=== PATIENT | male | born 1945 | race Caucasian/White ===

== ENCOUNTER → 2018-06-09 10:14 | Outpatient (CLI) | payer MEDICARE, BC, SELFPAY ==
[2018-06-09 10:33] LABS: Absolute Lymphocyte Count 1.28 X10^3/ul (0.83-4.51); Absolute Neutrophil Count 3.4 X10^3/uL (2.0-7.7); Basophil# 0.05 X10^3/uL; Eosinophils% 1.9 % (0-5); Hematocrit 44.4 % (40-54); Hemoglobin 14.8 g/dl (13.0-16.5); Lymphocyte # 1.28 X10^3/ul (4.0); Lymphocyte % 24.5 % (19-41); Mean Corp Hgb Conc 33.3 g/gl (32-36); Mean Corpuscular Hgb 33.5 pg (27.0-32.0); Mean Corpuscular Volume 100.5 fL (80-94); Mean Platelet Vol. 10.3 fl (6.2-12.0); Monocyte# 0.38 X10^3/uL; Monocyte% 7.3 % (0-10); Neutrophil % 64.9 % (47-70); Platelet Count 201 K/mm3 (150-450); RBC Distribution Width CV 13.3 % (11.6-14.6); RBC Distribution Width SD 48.5 fl (35.1-43.9); Red Blood Count 4.42 M/mm3 (4.6-6.2); White Blood Count 5.2 K/mm3 (4.4-11.0)
[2018-06-09 10:36] LABS: POSITIVE COUNT NO; POSITIVE DIFFERENTIAL NO; POSITIVE MORPHOLOGY NO
== END ==
PROVIDERS: Visit Provider Internal Medicine Hematology & Oncology
DX: C64.2 Malignant neoplasm of left kidney, except renal pelvis (principal)
CPT/HCPCS: 85025

== ENCOUNTER 2019-06-09 14:47 | Emergency (ER) | payer MEDICARE, BC, SELFPAY ==
[2019-06-09] VITALS (8 sets, daily range): BP systolic 180–209; BP diastolic 89–113; PULSE 66–78; RESP 14–18; TEMP 36.9; O2SAT 93–98; BMI 26.0
--- NOTE | 2019-06-09 14:55 | CT_ITS ---
STUDY: CT BRAIN WITHOUT CONTRAST REASON FOR EXAM: Male, 73 years old. Possible stroke. Patient has a history of prior brain tumor. RADIATION DOSAGE (If Supplied By Facility): CTDIvol = ( 44.99 ) mGy, DLP = ( 863.60 ) mGycm TECHNIQUE: Transaxial CT imaging of the brain was performed without administration of intravenous contrast material. Individualized dose optimization techniques were used for this CT. COMPARISON: No relevant priors. FINDINGS: Normal soft tissue structures. Once again, the patient is status post craniotomy involving the posterior vertex of the calvarium of the left parietal bone. Titanium mesh is seen. There is mild cerebral atrophy with widening of the extra-axial spaces and ventricular dilatation. Normal white matter tracts of the cerebral hemispheres. Normal basal ganglia and thalami. Normal brainstem. Normal cerebellum. There is no intracranial hemorrhage. There are no findings of an acute ischemic infarction. Atherosclerotic calcification of the cavernous portions of the internal carotid arteries. Partial opacification of the maxillary sinuses and ethmoid sinuses. CT/Brain/Head without Contrast IMPRESSION: Chronic involutional changes of the brain. Stable examination. No acute abnormality is seen. N.B. : The above information has been verbally conveyed by Wes Hammonds to Kulwinder Randall on 06/09/2019 15:15:58 (ET). Electronically Signed: Wes Hammonds, at 15:18 EST , Service support ,
--- NOTE | 2019-06-09 14:55 | EKG12_ITS ---
Test Reason : NEURO Blood Pressure : / mmHG Vent. Rate : 063 BPM Atrial Rate : 063 BPM P-R Int : 176 ms QRS Dur : 082 ms QT Int : 394 ms P-R-T Axes : 029 -05 011 degrees QTc Int : 403 ms Normal sinus rhythm Normal ECG Confirmed by ROYAL CHAVARRIA, OLLIE ([id number]), multimedia editor CARL DELEON ([id number]) on 06/11/2019 12:33:58 PM Referred By: JESUS Confirmed By:CHRIS PAIGE MD
--- NOTE | 2019-06-09 14:55 | RAD_ITS ---
STUDY: X-RAY CHEST REASON FOR EXAM: Male, 73 years old. Weakness. TECHNIQUE: Single AP portable view of the chest. COMPARISON: Comparison is made with prior study dated January 09, 2017. FINDINGS: EKG electrodes are seen. Stable minimally increased linear markings in the left midlung suggestive of linear scarring. There is no demonstrated pleural abnormality. Normal size heart. Normal mediastinum and david. Normal visualized pulmonary arteries. There is atherosclerotic calcification of the aortic arch with tortuosity. Normal visualized thoracic spine. Normal visualized ribs, clavicles, and shoulders. There is no demonstrated abnormality of the visualized soft tissue structures of the upper abdomen. RAD/Chest 1 View IMPRESSION: Stable mild increased linear markings at the left lung base suggestive of linear scarring. Electronically Signed: Wes Hammonds, at 15:35 EST , Service support ,
--- NOTE | 2019-06-09 14:58 | ED.VISSUMM ---
- ER Visit Summary Date of Service: 06/09/19 Chief Complaint: Onset left facial numbness, facial droop, left hand numbness and weakness and left leg weakness and numbness History of Present Illness: The patient is a 73 M very complex past medical history. The patient is a history of renal cancer with metastases. 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 Patient saw his oncologist today Dr. Bright Dsouza. He was doing well and as he was leaving the office he started having strokelike symptoms. He developed some difficulty with his speech, left facial droop and numbness, left hand weakness and numbness and unable to move his left leg and numbness. He has had symptoms like this before patient works secondary to his cancer and the medications that he is been on to treat that. Physical Examination: 73-year-old male brought in by josé antonio seen in the room. Initial vital signs initial blood pressure 209/113. Afebrile. His initial blood sugar by squad is 120. HEENT exam left-sided subjective facial numbness and left facial droop. Neck nontender. Lungs clear to auscultation. Heart regular rhythm. Abdomen is soft and nontender normal bowel sounds no peritoneal signs. Extremities he has weakness to his left hand and numbness. He is unable to move his left foot or leg and has numbness. He is unable to lift his left leg to gravity. He has mild movement and director sports to his left hand but does not lift it off the cot. Neurologically he is an NIH score of 8. Including left-sided facial numbness and weakness with a droop, left hand weakness and numbness and left leg unable to lift it at all or movement and numbness. Currently his speech is normal. His extraocular motions are intact. His right side is unremarkable. Test Results: CT of the brain without contrast showed no acute abnormality. Chronic changes. Read by the radiologist reviewed by me. No bleed. Chest x-ray chronic changes no acute process read both by myself and the radiologist portable 1 view. CBC showed a white count of 5. Hemoglobin of 12. No bands. Electrolytes unremarkable creatinine 1.1 normal gap. PT PT/INR unremarkable. Troponin normal. EKG sinus rhythm rate of 63 with no acute signs of dysrhythmia nor OH nor ischemia. Emergency Department Course and Treatment: 73-year-old male undergoing initial stroke protocol. He is improving. Initially he was weaker in his left hand which is improving his numbness was worse and his speech was dysarthric but that has now resolved. He has a very complicated case and has a history of something called tight vessel syndrome and has been on meds again because both a coagulopathy and possible bleeding. He is currently in CAT scan and will be valuated by the [facility] stroke neurologist soon. [facility] stroke neurologist evaluated patient. She and I were both discussing his case and we both strongly feel that he is not a TPA candidate. He is improving currently. He notes his facial droop is improving his left hand is improving. He still is weak in the left leg but has some movement to his foot. With all his complex past medical history and multiple other possible causes of his symptoms he neurologically feel the risk outweighs the benefit of TPA at this time. Multiple repeat exams. The patient has shown improvement from his initial presentation. His facial droop is somewhat improved but still present. His left arm weakness is greatly improved but still not as strong as his right. The numbness in his left arm is improved but not resolved. His left leg is still significantly weak and is unable to lift it off the bed. His neurological symptoms are definitely improving. He and I discussed at length. I spoke to [facility] and they work on accept him in transfer. Patient strongly does not want to be transferred and said he is been down [facility] twice he appreciates them caring for him but he said it has not made any significant difference and does not want to go down again. I offered him admission and encouraged him to be admitted to the hospital here and he said there is nothing anybody can do and often this takes 12 or even 15 hours to resolve. He strongly wants to go home. I had social media community manager talk to him. I also spoke to his brother in the room. Both he and his brother want to go home. They have a caregiver set up to help him. Treatment Plan: Patient is refusing admission. And wants to be discharged to home. He is gone through this multiple times before. Disposition: Discharge Impression: Left-sided weakness and numbness of uncertain etiology History of renal CA with metastasis This note was generated with [employer] dictation software. It may contain incorrect words, spelling, and punctuation that were not noted in review of the chart prior to signing ED Disposition - Plan for ED Patient: Referrals: Care Physician,No Primary [Primary Care Provider] -
--- NOTE | 2019-06-09 14:59 | NURSING ---
STROKE ALERT AT 1440
[2019-06-09 15:10] LABS: Absolute Lymphocyte Count 1.26 X10^3/uL (0.83-4.51); Absolute Neutrophil Count 3.2 X10^3/uL (2.0-7.7); Basophil# 0.06 X10^3/uL; Basophil% 1.2 % (0-1); Eosinophil# 0.03 X10^3/uL; Eosinophils% 0.6 % (0-5); Hematocrit 37.7 % (40-54); Hemoglobin 12.5 g/dL (13.0-16.5); Lymphocyte # 1.26 X10^3/ul (4.0); Lymphocyte % 24.2 % (19-41); Mean Corp Hgb Conc 33.2 g/dL (32-36); Mean Corpuscular Hgb 31.6 pg (27.0-32.0); Mean Corpuscular Volume 95.2 fL (80-94); Mean Platelet Vol. 9.7 fl (6.2-12.0); Monocyte# 0.64 X10^3/uL; Monocyte% 12.3 % (0-10); NRBC Flagged by Analyzer 0 % (0-5); Neutrophil % 61.5 % (47-70); Platelet Count 224 K/mm3 (150-450); RBC Distribution Width CV 14.2 % (11.6-14.6); RBC Distribution Width SD 49.4 fl (35.1-43.9); Red Blood Count 3.96 M/mm3 (4.6-6.2); White Blood Count 5.2 K/mm3 (4.4-11.0)
[2019-06-09 15:21] LABS: International Normalized Ratio 1.1; Prothrombin Time (Protime)PT. 13.5 SECONDS (11.7-14.9)
[2019-06-09 15:22] LABS: Partial Thromboplast Time 28.4 Seconds (24.1-36.2)
--- NOTE | 2019-06-09 15:23 | CHAPLAIN ---
Type of Pastoral Visit ___ Initial Visit ___ Follow-up Visit ___ On-call Visit ___ General Patient Visit ___ Spiritual Assessment ___ Family Conference ___ Bereavement _x__ Rapid Response ___ Code Blue ___ Other (describe below) Pastoral Care Referral From ___ Patient ___ Family ___ Nurse ___ Physician ___ Yacht Rigger ___ Cosmetician Apprentice _x__ Other (describe below) Sacrament/Intervention ___ Active listening ___ Anointing ___ Yazdanism ___ Bereavement ___ Communion ___ Alexsandra exploration ___ ___ Life review ___ Prayer ___ Reconciliation ___ Sacrament of Sick _x__ Supportive presence ___ Wedding ___ Other (describe below) Pastoral Comments met with brother of patient who had brought pt in from an appointment; offer of support given;
[2019-06-09 15:26] LABS: Anion Gap 6 (5-15); BUN 15 mg/dL (7-18); BUN/Creat Ratio 13.6 RATIO (10-20); Calcium,Total 8.7 mg/dL (8.5-10.1); Chloride 108 mmol/L (98-107); EST Glomerular Filtration Rate 70 mL/min (>60); Est Glom Filt Rate - Afr Amer 85 mL/min (>60); Estimated Creatinine Clearance 65.69 ml/min; Glucose 127 mg/dL (74-106); Potassium 3.7 mmol/L (3.5-5.1); Sodium Level 139 mmol/L (136-145)
[2019-06-09] MEDS: 0.9% Normal Saline 1,000 ML 999 ML IV (15:27)
--- NOTE | 2019-06-09 16:16 | NURSING ---
PHYSICIAN COMPENSATION ANALYST IN ROOM
--- NOTE | 2019-06-09 16:35 | CM.ED ---
Social Work Consult: Discharge Planning Informant: Dr. Randall Met with patient, patient brother, and patient son. Patient stating to be planning to discharge back to home. Per Dr. Randall there is concern of patient discharging to home due to patient living alone and patient left leg not worker. This social services technician broached concerns of patient discharging to home. Patient stating to be able to set up aides in the home. Patient son confirming to be able to have an aide in the home later this evening and starting tomorrow. Patient son also lives close and is able to stop by and help as needed as patient son is a davila and able to help patient when needed. Patient son planning to provide transportation to home for patient and voicing no concerns with plan to discharge to home. Patient brother also agreeable to plan and supportive of patient. This social services technician offered to provide patient/patient family with list of other aide services in the event that this is needed, the resource was declined stating we have what we need. Patient/patient family presenting with a pleasant and engaged affect. All questions answered. Updated Dr. Randall on above information. Dr. Randall agreeable to discharge plan to home with aides. Shree Banuelos MSW, RACHEL
--- NOTE | 2019-06-09 16:37 | ED.DEP ---
ED Disposition - Plan for ED Patient: Disposition: Home or Assisted Living Referrals: Bright Dsouza DO [STAFF PHYSICIAN] - As soon as possible Additional Instructions: Call or return if you are feeling worse or simply are having difficulty taking care of yourself at home. Your symptoms could be secondary to this prior medications or any stroke or mini stroke or other etiologies. Follow-up with Dr. Dsouza.
--- NOTE | 2019-06-09 16:53 | ED.RN ---
REVIEWED D/C INSTRUCTIONS, FOLLOW UP CARE, AND S/S THAT WOULD WARRANT A RETURN TO THE ED WITH PT. PT VERBALIZED AN UNDERSTANDING AND DENIES FURTHER QUESTIONS FOR THIS RN. PT SKIN P/W/D, RESP EVEN AND UNLABORED, PT AO X 3, NO DISTRESS NOTED. PT ASSISTED OUT OF ED IN WHEELCHAIR.
== END 2019-06-09 16:54 | disposition home or self-care (01) ==
PROVIDERS: Emergency Provider Emergency Medicine
DX: R20.0 Anesthesia of skin (principal); R53.1 Weakness; R29.810 Facial weakness; C79.9 Secondary malignant neoplasm of unspecified site; Z85.528 Personal history of other malignant neoplasm of kidney; Z86.718 Personal history of other venous thrombosis and embolism; Z79.02 Long term (current) use of antithrombotics/antiplatelets
CPT/HCPCS: 70450; 71045; 80048; 84484; 85025; 85610; 85730; 93005; 96360; 99251; 99285; J7030; A4216; G0463

== ENCOUNTER → 2022-01-16 | Outpatient (CLI) | payer MEDICARE, BC, SELFPAY | END | disposition home or self-care (01) | PROVIDERS: Visit Provider Otolaryngology | DX: J34.0 Abscess, furuncle and carbuncle of nose (principal) | CPT/HCPCS: 87070; 87205 ==